=== PATIENT | female | born 1995 | race Caucasian/White ===

== ENCOUNTER 2020-09-13 22:22 | Emergency (ER) | payer OTHER ==
[~2020-09-13 22:22] MED LIST: DOCUSATE SODIU100 MG PO; IBUPROFEN600 MG PO; SUBUTEX 8 MG TAB8 MG SL
[2020-09-13 22:53] LABS: HEMOGLOBIN 12.9 gm/dl (12.3-15.3); RED BLOOD COUNT 4.27 M/UL (4.00-5.10); WHITE BLOOD COUNT 7.5 K/UL (4.5-11.0)
[2020-09-13 23:09] LABS: BUN/CREATININE RATIO 23 (0-10)
[2020-09-15] MEDS ORDERED: BENTYL 20MG TAB20 MG PO (04:32)
[2020-09-15] MEDS ORDERED: ADULT GLYCERIN1 EACH PR (04:32)
[2020-09-15] MEDS ORDERED: MIRALAX 119 GR119 GM GT (04:32)
== END 2020-09-14 00:19 | disposition left against medical advice (07) ==
LOC: ER1 22:22
PROVIDERS: Physician Assistant Medical
DX: R10.11 Right upper quadrant pain (principal); F17.210 Nicotine dependence, cigarettes, uncomplicated; Z86.13 Personal history of malaria
CPT/HCPCS: 80053; 81001; 83690; 84703; 85025; 99284; Q9967

== ENCOUNTER 2020-09-15 00:16 | Emergency (ER) | payer OTHER ==
[2020-09-15 01:03] LABS: HEMOGLOBIN 14.5 gm/dl (12.3-15.3)
[2020-09-15 01:04] LABS: RED BLOOD COUNT 4.8 M/UL (4.00-5.10); WHITE BLOOD COUNT 9.7 K/UL (4.5-11.0)
[2020-09-15 01:22] LABS: BUN/CREATININE RATIO 19 (0-10)
[2020-09-15] MEDS ORDERED: BENTYL 20MG TAB20 MG PO (04:32)
[2020-09-15] MEDS ORDERED: ADULT GLYCERIN1 EACH PR (04:32)
[2020-09-15] MEDS ORDERED: MIRALAX 119 GR119 GM GT (04:32)
== END 2020-09-15 04:35 | disposition home or self-care (01) ==
LOC: ER1 00:16
PROVIDERS: Physician Assistant Medical
DX: K59.00 Constipation, unspecified (principal); F17.210 Nicotine dependence, cigarettes, uncomplicated
CPT/HCPCS: 80053; 83690; 85025; 99284; Q9967